=== PATIENT | female | born 1950 | race Two or more races ===

== ENCOUNTER 2024-05-26 06:54 | Day surgery (SDC) | payer MEDICARE, MEDICAID ==
[2024-05-06 12:17] LABS: Urine Bacteria None Seen /hpf (None Seen)
[2024-05-06 12:33] LABS: Basophils # (auto) 0 10 ^3/uL (0-0.2); Basophils % (auto) 0.8 % (0.0-2.0); Eosinophils # (auto) 0.1 10 ^3/uL (0-0.8); Eosinophils % (auto) 2.1 % (0.0-7.0); Hematocrit 37.2 % (36.0-46.0); Hemoglobin 12.9 g/dL (12.2-16.2); Lymphocytes # (auto) 1.9 10 ^3/uL (0.4-5.4); Lymphocytes % (auto) 31.5 % (10.0-50.0); Mean Corpuscular Hemoglobin 31.8 pg (28.0-32.0); Mean Corpuscular Hgb Conc. 34.5 g/dL (32.0-36.0); Monocytes # (auto) 0.4 10 ^3/uL (0-1.3); Monocytes % (auto) 7.1 % (0.0-12.0); Neutrophils # (auto) 3.5 10 ^3/uL (1.6-8.6); Neutrophils % (auto) 58.5 % (37.0-80.0); Nucleated Red Blood Cells % 0.1 %; Platelet Count (auto) 173 10^3/uL (140-450); Red Blood Cells 4.05 10^6/uL (4.0-5.20); Red Cell Distribution Width 12.8 % (11.8-14.3); White Blood Cell 5.9 10^3/uL (4.4-10.8)
[2024-05-06 12:42] LABS: INR 1.01 (0.9-1.15); Prothrombin Time 10.7 sec (9.3-11.8)
[2024-05-06 12:55] LABS: Urine Blood TRACE /uL (Negative); Urine Clarity Clear (Clear); Urine Color Light-Yellow (Yellow); Urine Protein, UAD Negative (Negative); Urine Specific Gravity 1.007 (1.001-1.035); Urine Urobilinogen Normal (Negative); Urine WBC 22 /hpf (0 - 5)
[2024-05-06 13:45] LABS: Alanine Aminotransferase 22 U/L (7-40); Albumin 4.2 g/dL (3.2-4.8); Alkaline Phosphatase 71 U/L (46-116); Anion Gap 5 (5-15); Aspartate Aminotransferase 15 U/L (13-40); BUN/Creatinine Ratio 19.4 (10.0-20.0); Blood Urea Nitrogen 12 mg/dL (9-23); Calcium 9.4 mg/dL (8.7-10.4); Carbon Dioxide 27 mmol/L (20-30); Chloride 108 mmol/L (98-107); Glucose 83 mg/dL (74-106); Potassium 3.7 mmol/L (3.5-5.1); Sodium 140 mmol/L (136-145)
[2024-05-06 13:46] LABS: Bilirubin, Total 0.7 mg/dL (0.2-1.0); Total Protein 6.8 g/dL (5.7-8.2)
[~2024-05-26] VITALS: Ht 152.4 cm; Wt 57.6 kg
[~2024-05-26 06:54] MED LIST: ALEN70TA74 PO; ASPI1TAB20 PO
[2024-05-26] MEDS ORDERED: SUCCINYLCHOLINE CHLORIDE 20 MG/ML 10ML VIAL IV ONE (06:55)
[2024-05-26] MEDS: ROPIVACAINE 0.5% (5MG/ML) 20ML AMPULE IJ ONE (07:27)
[2024-05-26] MEDS ORDERED: KETOROLAC TROMETH 30 MG/ML 1ML VIAL IV ONE (07:30)
[2024-05-26] MEDS: ceFAZolin 2 GM/D5W50ml 50 ML IV ONE (07:30)
[2024-05-26] MEDS ORDERED: ONDANSETRON HCL 4 MG/2 ML VIAL IV ONE (07:30)
[2024-05-26] MEDS ORDERED: HYDROmorphone HCL 2 MG/ML VL/or syr IV PRN (07:30)
[2024-05-26] MEDS ORDERED: MIDAZOLAM HCL 2MG/2ML 2ml VIAL (1mg/ml) ONE (07:32)
[2024-05-26] MEDS ORDERED: fentaNYL CITRATE 100 MCG/2 ML VL ONE (07:32)
[2024-05-26] MEDS ORDERED: PROPOFOL 10 MG/ML 20 ML IV ONE (07:34)
[2024-05-26] MEDS ORDERED: LIDOCAINE 2% (LOCAL ANESTH.) PF 5ml SDV ONE (07:34)
[2024-05-26] MEDS ORDERED: ONDANSETRON HCL 4 MG/2 ML VIAL ONE (07:34)
[2024-05-26] MEDS ORDERED: BACITRACIN TOP OINT 1 UD PKG TOP ONE (07:57)
[2024-05-26] MEDS ORDERED: GLYCOPYRROLATE 0.2 MG/ML 1ML VIAL ONE (08:27)
[2024-05-26] MEDS ORDERED: SUGAMMADEX 200mg/2ml Vial (100MG/ML) IV ONE (08:28)
[2024-05-26 08:29] VITALS: RESP 16; TEMP 97.8; O2SAT 99
[2024-05-26] MEDS ORDERED: ROCURONIUM 10MG/ML 10ML VIAL IV ONE (08:29)
[2024-05-26 09:15] VITALS: BP 132/58; PULSE 63; RESP 13; O2SAT 96
== END 2024-05-26 09:34 | disposition home or self-care (01) ==
LOC: SUR 06:54
PROVIDERS: ATTEND Podiatrist Foot & Ankle Surgery
DX: M20.5X1 Other deformities of toe(s) (acquired), right foot (principal); Z79.82 Long term (current) use of aspirin; Z79.899 Other long term (current) drug therapy; Z90.12 Acquired absence of left breast and nipple; Z85.3 Personal history of malignant neoplasm of breast; Z98.890 Other specified postprocedural states
CPT/HCPCS: 28160; 36415; 80053; 81001; 85025; 85610; 85730; 88305; 88311; C1713; J0330; J0690; J2001; J2250; J2405; J2704; J2795; J3010

== ENCOUNTER 2024-12-08 08:31 | Day surgery (SDC) | payer MEDICARE, MEDICAID ==
[2024-12-03 12:39] LABS: Basophils # (auto) 0.1 10 ^3/uL (0-0.2); Basophils % (auto) 1.3 % (0.0-2.0); Eosinophils # (auto) 0.1 10 ^3/uL (0-0.8); Eosinophils % (auto) 1.3 % (0.0-7.0); Hematocrit 39.7 % (36.0-46.0); Hemoglobin 13.3 g/dL (12.2-16.2); Lymphocytes # (auto) 1.8 10 ^3/uL (0.4-5.4); Lymphocytes % (auto) 35.5 % (10.0-50.0); Mean Corpuscular Hemoglobin 30.5 pg (28.0-32.0); Mean Corpuscular Hgb Conc. 33.4 g/dL (32.0-36.0); Mean Corpuscular Volume 91.4 fL (80.0-100.0); Monocytes # (auto) 0.4 10 ^3/uL (0-1.3); Monocytes % (auto) 7.4 % (0.0-12.0); Neutrophils # (auto) 2.8 10 ^3/uL (1.6-8.6); Neutrophils % (auto) 54.5 % (37.0-80.0); Nucleated Red Blood Cells % 0.1 %; Platelet Count (auto) 227 10^3/uL (140-450); Red Blood Cells 4.35 10^6/uL (4.0-5.20); Red Cell Distribution Width 13.1 % (11.8-14.3); White Blood Cell 5.2 10^3/uL (4.4-10.8)
[2024-12-03 12:54] LABS: INR 1.02 (0.9-1.15); Partial Thromboplastin Time 27.1 SEC (24.5-34.5); Prothrombin Time 10.8 sec (9.3-11.8)
[2024-12-03 12:59] LABS: Alanine Aminotransferase 22 U/L (7-40); Albumin 4.3 g/dL (3.2-4.8); Alkaline Phosphatase 90 U/L (46-116); Anion Gap 7 (5-15); Aspartate Aminotransferase 17 U/L (13-40); BUN/Creatinine Ratio 19.5 (10.0-20.0); Bilirubin, Total 0.7 mg/dL (0.2-1.0); Blood Urea Nitrogen 15 mg/dL (9-23); Calcium 9.8 mg/dL (8.7-10.4); Carbon Dioxide 28 mmol/L (20-31); Chloride 107 mmol/L (98-107); Glucose 91 mg/dL (74-106); Potassium 3.9 mmol/L (3.5-5.1); Sodium 142 mmol/L (136-145)
[2024-12-03 13:00] LABS: Total Protein 7.4 g/dL (5.7-8.2)
[2024-12-06 07:31] LABS: Urine Bacteria FEW /hpf (None Seen); Urine Blood Negative /uL (Negative); Urine Clarity Clear (Clear); Urine Color Colorless (Yellow); Urine Protein, UAD Negative (Negative); Urine Squamous Epithelial Cell FEW /hpf (<5); Urine Urobilinogen Normal (Negative); Urine WBC 2 /HPF (0-5); Urine pH 7.5 (5.0-9.0)
[2024-12-07 17:11] LABS: Urine Bacteria None Seen /hpf (None Seen)
[2024-12-07 17:30] LABS: Urine Blood Negative /uL (Negative); Urine Clarity Clear (Clear); Urine Color Colorless (Yellow); Urine Protein, UAD Negative (Negative); Urine Specific Gravity 1.006 (1.001-1.035); Urine Squamous Epithelial Cell FEW /hpf (<5); Urine Urobilinogen Normal (Negative); Urine WBC 4 /HPF (0-5); Urine pH 6.5 (5.0-9.0)
[~2024-12-08] VITALS: Ht 152.4 cm; Wt 56.7 kg
[2024-12-08] MEDS ORDERED: ceFAZolin 2 GM/D5W100ml 100 ML IV ONE (10:02)
[2024-12-08] MEDS ORDERED: LIDOCAINE 1% INJ PF 5ML AMP ONE (10:15)
[2024-12-08] MEDS ORDERED: fentaNYL CITRATE 100 MCG/2 ML VL ONE (10:15)
[2024-12-08] MEDS ORDERED: KETAMINE 50mg/ML 1ml syringe ONE (10:15)
[2024-12-08] MEDS ORDERED: ONDANSETRON HCL 4 MG/2 ML VIAL ONE (10:15)
[2024-12-08] MEDS ORDERED: MIDAZOLAM HCL 2MG/2ML 2ml VIAL (1mg/ml) ONE (10:15)
[2024-12-08] MEDS ORDERED: PROPOFOL 10 MG/ML 20 ML IV ONE (10:15)
[2024-12-08] MEDS ORDERED: SODIUM CHLORIDE LOCK 10 ML ONE (10:15)
[2024-12-08] MEDS ORDERED: MEPERIDINE HCL (25 MG/ML) 1ML VIAL ONE (10:15)
[2024-12-08] MEDS ORDERED: METOCLOPRAMIDE HCL 5MG/ml INJ 2ml VIAL IV ONE (10:30)
[2024-12-08] MEDS ORDERED: KETOROLAC TROMETH 30 MG/ML 1ML VIAL IV ONE (10:30)
[2024-12-08] MEDS ORDERED: MORPHINE SULFATE INJ 2 MG/ml SYRG IV PRN (10:30)
[2024-12-08] MEDS ORDERED: MORPHINE SULFATE 4 MG/ML SYR/VIAL IV PRN (10:30)
[2024-12-08] MEDS ORDERED: HYDROmorphone HCL 2 MG/ML VL/or syr IV PRN ×2 (10:30)
[2024-12-08] MEDS ORDERED: ceFAZolin 1GM VL ONE ×2 (10:34→11:02)
[2024-12-08] MEDS ORDERED: BACITRACIN TOP OINT 1 UD PKG TOP ONE (10:34)
[2024-12-08] MEDS ORDERED: ROPIVACAINE 0.5% (5MG/ML) 20ML AMPULE IJ ONE (10:34)
[2024-12-08 12:41] VITALS: PULSE 49; RESP 12; TEMP 97.1; O2SAT 98
--- NOTE | 2024-12-08 13:06 | DVH ---
EXAM: XY R FOOT 3 VIEW XRAY CLINICAL INDICATION: SURGERY TECHNIQUE: XY R FOOT 3 VIEW XRAY Comparison: None FINDINGS/IMPRESSION: Postsurgical changes involving the 1st digit. Please refer to operative report.
--- NOTE | 2024-12-08 13:25 | DVHOP2 ---
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 Patino Anesthesia: Mac Consent: The patient was informed of the risks and benefits of the procedure. These include but are not limited to complications of anesthesia, postoperative infection, incomplete relief of symptoms, recurrence of symptoms, damage to blood vessels, nerves and tendons, deep venous thrombosis, pulmonary embolism and possible need for repeat surgery in the future. Name of Procedure Performed Fusion right 1st metatarsophalangeal joint Procedure Details Procedure Details: The patient was brought to the operating room placed on the operating table in the supine position. After MAC anesthesia was achieved approximately 20 cc of 0.5% ropivacaine plain was injected in a Goddard block fashion to the right 1st MPJ without incident. The right foot and leg was then prepped and draped in the proper aseptic manner which time a thigh tourniquet was applied and inflated to 250 mm Hg pressure after operated elevation and exsanguination utilizing an Esmarch. Attention was now directed to procedure 1. Procedure 1. Fusion right 1st metatarsophalangeal joint: utilizing a 15. Blade, an incision was placed on the dorsomedial aspect of the right 1st metatarsophalangeal joint of the right foot without incident. The incision was carried deep by means of sharp and blunt dissection with care being taken to preserve all underlying vital structures. All bleeders were bovied or ligated as necessary. Attention was now directed to the capsule whereby it was incised linearly reflecting the 1st metatarsophalangeal joint. At this time we noticed significant amount of cartilaginous erosions eburnation osteophytic lipping and degenerative joint disease noted throughout the entire right 1st metatarsophalangeal joint. Utilizing a power saw, the hypertrophied medial eminence was resected sent to pathology as specimen as well as all osteophytes were resected utilizing a rongeur and sent to pathology the specimen. Utilizing once again the power saw the cartilaginous area of the head of the 1st metatarsal in the base of the proximal phalanx of the right great toe were denuded and rasped to create good [id number] apposition in preparation for internal hardware fixation of the right 1st MPJ. At this time the right 1st MPJ surgical area was lavaged with normal saline and 1 g of Ancef was aspirated no debris was noted. After the [place] plate was selected it sat in Ancef irrigant for approximately 7 minutes prior to implantation. A small plate with 0 degree pitch six holes plate was utilized to fixate the right 1st MPJ without incident. It is important to note, that prior to fixation an intra-articular capsulotomy and an adductor release was performed without incident. At this time, the plate was anchored in place with the following screws 32.710 mm locking screw, 22.714 mm locking screw, one ulcer one cortical screw 2.714 mm and one cannulated screw 2.534 mm used as a cross fixation between the proximal phalanx and the right 1st metatarsal without incident. Intraoperative x-rays were taken to ensure proper alignment and positioning. The right great toe was fixated and fused in neutral anatomic position. As a precautionary measure 1 cc of aloe fiber graft was used as a bone graft to the right 1st MPJ without incident. At this time, deep closure was achieved via 3-0 Vicryl suture, subcuticular stitch 4-0 Vicryl suture, and skin with 4-0 nylon suture. Surgical dressings consisted of bacitracin ointment Xeroform 4x4s Kerlix and and Callum bandage heat to yield a mildly compressive type bandage. There were no intra op complications the patient left the operating recovery room in stable condition. Cipro and to note that the patient was prophylaxed 2 g of IV Ancef prior to surgery. Patient has postop medications and follow visit my office at home. Patient given strict instructions to ambulate in the cam walker with air only not one step without. Specimen: Bone Condition Good Disposition Home GHANSHYAM BROWN DPM Dec 08, 2024 13:25
[2024-12-08 13:26] VITALS: BP 158/64; PULSE 49; RESP 14; O2SAT 99
== END 2024-12-08 13:41 | disposition home or self-care (01) ==
LOC: SUR 08:31
PROVIDERS: ATTEND Podiatrist Foot & Ankle Surgery
DX: M19.071 Primary osteoarthritis, right ankle and foot (principal); M20.11 Hallux valgus (acquired), right foot; M21.611 Bunion of right foot; M20.5X1 Other deformities of toe(s) (acquired), right foot; M25.774 Osteophyte, right foot; M79.671 Pain in right foot; Z85.3 Personal history of malignant neoplasm of breast; Z98.890 Other specified postprocedural states
CPT/HCPCS: 28750; 36415; 73630; 80053; 81001; 85025; 85610; 85730; 88305; 88311; C1713; J0690; J2175; J2250; J2405; J2704; J2795; J3010

== ENCOUNTER 2025-08-24 08:00 | Day surgery (SDC) | payer MEDICARE, MEDICAID ==
[2025-08-19 11:19] LABS: Hematocrit 40.6 % (36.0-46.0); Hemoglobin 14.0 g/dL (12.2-16.2); Mean Corpuscular Hemoglobin 31.7 pg (28.0-32.0); Mean Corpuscular Volume 92.2 fL (80.0-100.0); Nucleated Red Blood Cells % 0.0 %
[2025-08-19 11:32] LABS: INR 1.0 (0.9-1.15); Partial Thromboplastin Time 27.6 SEC (24.5-34.5); Prothrombin Time 10.6 sec (9.3-11.8)
[2025-08-19 11:35] LABS: Urine Protein, UAD Negative (Negative); Urine WBC Clumps PRESENT /hpf (None Seen)
[2025-08-19 12:46] LABS: Alanine Aminotransferase 22 U/L (7-40); Alkaline Phosphatase 116 U/L (46-116); Anion Gap 9 (5-15); BUN/Creatinine Ratio 13.9 (10.0-20.0); Blood Urea Nitrogen 10 mg/dL (9-23); Calcium 9.5 mg/dL (8.7-10.4); Carbon Dioxide 29 mmol/L (20-31); Chloride 105 mmol/L (98-107); Glucose 89 mg/dL (74-106); Potassium 3.9 mmol/L (3.5-5.1); Sodium 143 mmol/L (136-145); Total Protein 8.1 g/dL (5.7-8.2)
[2025-08-19 12:48] LABS: Albumin 4.5 g/dL (3.2-4.8); Bilirubin, Total 0.7 mg/dL (0.2-1.0)
[~2025-08-24] VITALS: Ht 152.4 cm; Wt 56.7 kg
[2025-08-24] MEDS ORDERED: ETOMIDATE (2MG/ML) 10ML VIAL IV ONE (08:01)
[2025-08-24] MEDS ORDERED: ceFAZolin 2 GM/D5W50ml 50 ML IV ONE (08:14)
[2025-08-24] MEDS ORDERED: ROPIVACAINE 0.5% (5MG/ML) 20ML AMPULE IJ ONE (09:23)
[2025-08-24] MEDS ORDERED: NEOMYCIN-BACITRACIN-POLYM 15GM TOP OINT TOP ONE (09:23)
[2025-08-24] MEDS ORDERED: ceFAZolin 1GM VL ONE (09:42)
[2025-08-24] MEDS ORDERED: fentaNYL CITRATE 100 MCG/2 ML VL ONE (09:47)
[2025-08-24] MEDS ORDERED: MIDAZOLAM HCL 2MG/2ML 2ml VIAL (1mg/ml) ONE (09:47)
[2025-08-24] MEDS ORDERED: MEPERIDINE HCL (25 MG/ML) 1ML VIAL ONE (09:47)
[2025-08-24] MEDS ORDERED: ONDANSETRON HCL 4 MG/2 ML VIAL ONE (10:21)
[2025-08-24 11:05] VITALS: PULSE 94; RESP 99; TEMP 97.3; O2SAT 99
--- NOTE | 2025-08-24 11:09 | DVHOP2 ---
Operative Report - 2 Report Details Date: 08/24/25 Preop Diagnosis: Painful hallux limitus/rigidus with significant bunion deformity left foot Postop Diagnosis: The same with significant degenerative joint disease cartilaginous erosions eburnation and osteophytic lipping noted to the left 1st MPJ Surgeon: Ghanshyam Brown, LALA , MHA, MS, DABMSP Potato Picker: None Anesthesiologist: Dr. Kimberly MD Anesthesia: General Consent: The patient was informed of the risks and benefits of the procedure. These include but are not limited to complications of anesthesia, postoperative infection, incomplete relief of symptoms, recurrence of symptoms, damage to blood vessels, nerves and tendons, deep venous thrombosis, pulmonary embolism and possible need for repeat surgery in the future. Complications: NONE Indications for Surgery: Significant pain on shoe gear and ambulation Name of Procedure Performed Arthrodesis left 1st metatarsophalangeal joint Procedure Details Procedure Details: The patient was brought to the operating room placed operating table in the supine position after general anesthesia was achieved the left foot and leg was prepped and draped in the proper aseptic manner which time an a thigh tourniquet was applied and inflated 250 mm Hg pressure after appropriate elevation and exsanguination utilizing an Esmarch. Approximately 20 cc 0.5% ropivacaine plain was injected in a Goddard block fashion. Attention was now directed to procedure 1. Procedure 1. Arthrodesis left metatarsophalangeal joint An incision was placed on the dorsomedial aspect left 1st MPJ the incision was carried deep by means of sharp dissection with care being taken to preserve all underlying vital structures all bleeders were Bovie ligated as necessary. Deep dissection was carried down to the level of the capsule were by a linear incision was placed on the capsule the incision was carried deep down to bone. At this time we encountered significant amount of cartilaginous erosions degenerative joint disease eburnation were noted with osteophytic lipping utilizing a power saw the hypertrophied medial eminence was resected. Pathology specimen. All osteophytes were also resected some pathology specimen at this time utilizing a power saw a small sliver of the capsule was removed in order to create good [id number] apposition at the completion of the procedure. The same was performed at the base of the proximal phalanx as well. Area flushed copious amounts of irrigant was aspirated no debris was noted. At this time using the flower system here at [facility] we utilized 4.0 screws x2 one is 36 mm and the other is 22 mm. The screws were placed in a cross fashion guided through a guidewire and confirmed with x-ray without incident. X-rays confirmed proper positioning of the screws as well as proper anatomic position. The left great toe was inspected and was noted to be with good impaction and without any range of motion whatsoever which is the desired result. Area was once again flushed with copious amounts of irrigant was aspirated no debris was noted. It is also important to note that during the procedure and intra-arterial capsulotomy and an adductor release was performed as well without incident. Capsule was closed with 3-0 Vicryl suture subcuticular cyst 4-0 Vicryl sutures skin with 3-0 nylon suture in a running locking stitch. Surgical dressing consisted of bacitracin ointment Xeroform 4x4s Kerlix and Coban to yield a mildly compressive type bandage. Thigh tourniquet was released and immediate normoactive hyperemia returned to all digits with good digital perfusion present. There were no intraoperative c omplications. The patient left the operating room to recovery room in stable condition. It is important to note that the patient was prophylaxed 2 g of IV Ancef prior to surgery. Patient has postop medications and follow visit to my office for her follow-up visit at home. Patient given strict instructions to ambulate in the cam walker with air only not one step without patient advised to keep the dressings intact clean and dry as well. Specimen: Bone Condition Stable Disposition Home GHANSHYAM BROWN DPM Aug 24, 2025 11:09
[2025-08-24 12:10] VITALS: BP 150/61; PULSE 58; RESP 17; O2SAT 96
--- NOTE | 2025-08-24 13:42 | DVH ---
EXAM: XY L FOOT 2 VIEW XRAY CLINICAL INDICATION: INTRAOP TECHNIQUE: XY L FOOT 2 VIEW XRAY Comparison: XY R FOOT 3 VIEW XRAY on DOS: 12/08/24 FINDINGS/IMPRESSION: Postsurgical changes involving the left 1st digit. No acute fracture.
== END 2025-08-24 12:25 | disposition home or self-care (01) ==
LOC: SUR 08:00
PROVIDERS: ATTEND Podiatrist Foot & Ankle Surgery
DX: M20.5X2 Other deformities of toe(s) (acquired), left foot (principal); M21.612 Bunion of left foot; I10 Essential (primary) hypertension; Z79.82 Long term (current) use of aspirin; Z79.899 Other long term (current) drug therapy; Z85.3 Personal history of malignant neoplasm of breast; Z98.890 Other specified postprocedural states
CPT/HCPCS: 28750; 36415; 73620; 80053; 81001; 85025; 85610; 85730; 88304; 88311; A4649; A6450; C1769; J0690; J1100; J2175; J2250; J2405; J2795; J3010